=== PATIENT | female | born 1995 | race Hispanic/Latino ===

== ENCOUNTER 2022-02-08 14:56 | Emergency (ER) | payer OTHER ==
[~2022-02-08] VITALS: Ht 157.5 cm; Wt 63.5 kg
[2022-02-08 15:49] LABS: BASOPHILS % (AUTO) 0.4 % (0.0-5.0); HEMATOCRIT 23.7 % (36-48); LYMPHOCYTES % (AUTO) 18.6 % (21.0-51.0); MEAN CORPUSCULAR HEMOGLOBIN 30.6 pg (27.0-33.0); MEAN CORPUSCULAR HGB CONC 33.3 g/dL (32.0-36.0); MEAN CORPUSCULAR VOLUME 91.9 fL (79-99); MONOCYTES % (AUTO) 6.8 % (3.0-13.0); NEUTROPHILS % (AUTO) 73.8 % (40.0-77.0); PLATELET COUNT (AUTO) 213 K/uL (130-400); RED BLOOD CELL COUNT(AUTO) 2.58 MIL/uL (4.00-5.50); WHITE BLOOD COUNT (AUTO) 4.6 K/uL (4.8-10.8)
[2022-02-08 15:58] LABS: CREATININE 0.7 mg/dL (0.5-1.5)
[2022-02-08 16:00] LABS: APPEARANCE,URINE SL CLOUDY (CLEAR); BILIRUBIN,URINE NEGATIVE (NEGATIVE); COLOR,URINE YELLOW (YELLOW); GLUCOSE, URINE (UA) NEGATIVE (NEGATIVE); KETONES,URINE >=80 mg/dL (NEGATIVE); LEUKOCYTE ESTERASE ,URINE NEGATIVE (NEGATIVE); NITRATE,URINE NEGATIVE (NEGATIVE); OCCULT BLOOD,URINE LARGE (NEGATIVE); PROTEIN,URINE NEGATIVE (NEGATIVE)
[2022-02-08] MEDS ORDERED: 0.9%NACL 1000ML 1,000 ML IV SCH (16:00)
[2022-02-08 16:02] LABS: ALBUMIN 3.6 g/dL (3.5-5.0); TOTAL PROTEIN, SERUM 6.6 g/dL (6.0-8.3)
[2022-02-08 16:05] LABS: BACTERIA,URINE Rare /HPF (None Seen)
[2022-02-08 16:06] LABS: SQUAMOUS EPITHELIAL CELL,UR 0-2 /HPF (0-2); WBC,URINE 0-1 /HPF (0-1)
[2022-02-08] MEDS ORDERED: PREN-61 PO (16:25)
[2022-02-08 16:51] VITALS: BP 120/66
== END 2022-02-08 16:58 | disposition home or self-care (01) ==
LOC: EDH 14:56
DX: D64.9 Anemia, unspecified (principal); R53.1 Weakness; F32.A Depression, unspecified
CPT/HCPCS: 36415; 76856; 80053; 81001; 81025; 85025; 86850; 86900; 86901

== ENCOUNTER 2022-02-12 17:14 | Inpatient (IN) | payer OTHER ==
[~2022-02-12] VITALS: Ht 208.3 cm; Wt 60.8 kg
[~2022-02-12 17:14] MED LIST: PREN-61 PO
[2022-02-12 17:43] LABS: BASOPHILS % (AUTO) 0.6 % (0.0-5.0); EOSINOPHILS % (AUTO) 0.6 % (0.0-8.0); LYMPHOCYTES % (AUTO) 30.9 % (21.0-51.0); MEAN CORPUSCULAR HEMOGLOBIN 29.9 pg (27.0-33.0); MEAN CORPUSCULAR HGB CONC 31.8 g/dL (32.0-36.0); MEAN CORPUSCULAR VOLUME 94.1 fL (79-99); MONOCYTES % (AUTO) 10.7 % (3.0-13.0); PLATELET COUNT (AUTO) 268 K/uL (130-400); RED BLOOD CELL COUNT(AUTO) 2.04 MIL/uL (4.00-5.50); RED CELL DISTRIBUTION WIDTH 13.7 % (11.0-15.5); WHITE BLOOD COUNT (AUTO) 5.3 K/uL (4.8-10.8)
[2022-02-12 17:51] LABS: HEMATOCRIT 19.2 % (36-48)
[2022-02-12 17:55] LABS: POTASSIUM 3.5 mmol/L (3.5-5.1)
[2022-02-12 17:58] LABS: INR 0.93 (0.85-1.15); PROTHROMBIN TIME 10.1 SEC (9.6-11.6)
[2022-02-12 18:00] LABS: ALBUMIN 3.4 g/dL (3.5-5.0); TOTAL PROTEIN, SERUM 6.2 g/dL (6.0-8.3)
[2022-02-12] MEDS ORDERED: HYDROCODONE/ACETAMINOPHEN 5/325 MG TAB PO PRN ×2 (20:00)
[2022-02-12] MEDS ORDERED: ACETAMINOPHEN 325 MG TAB PO PRN (20:00)
[2022-02-12] MEDS ORDERED: ONDANSETRON 4MG INJ IV PRN (20:00)
[2022-02-12] MEDS: FAMOTIDINE 20MG TAB PO SCH (21:52)
[2022-02-13 04:40] LABS: % IRON SATURATION 8.7 % (22-44)
[2022-02-13] MEDS ORDERED: BENZ1LOZ81 MM (08:51)
[2022-02-13] MEDS ORDERED: LOPE2CAP14 PO ×2 (08:51)
[2022-02-13] MEDS ORDERED: FERR-72 PO (08:51)
[2022-02-13] MEDS ORDERED: TRAZ-187 PO (08:51)
[2022-02-13] MEDS ORDERED: MOM30 PO (08:51)
[2022-02-13] MEDS ORDERED: BACI28.434 TP (08:51)
[2022-02-13] MEDS ORDERED: ESCI-8 PO (08:51)
[2022-02-13] MEDS ORDERED: FOLI1 PO (08:51)
[2022-02-13] MEDS ORDERED: METH-811 PO (08:51)
[2022-02-13] MEDS ORDERED: THIA100T75 PO (08:51)
[2022-02-13] MEDS ORDERED: MULT-1367 PO (08:51)
[2022-02-13] MEDS ORDERED: MAAL30 PO (08:51)
[2022-02-13] MEDS ORDERED: ONDA4TAB10 PO (08:51)
[2022-02-13] MEDS ORDERED: PHARMACY COMMUNICATION MISC SCH (09:00)
[2022-02-13] MEDS ORDERED: MEDROXYPROGESTERONE ACET 5 MG TAB PO SCH (09:30)
[2022-02-13] MEDS: FAMOTIDINE 20MG TAB PO SCH ×2 (09:32→20:59)
[2022-02-13 15:39] VITALS: BP 115/78
== END 2022-02-13 21:32 | disposition home or self-care (01) | DRG 760 ==
LOC: EDH 17:14 → EDHIP 17:15
PROVIDERS: ADMIT Hospitalist; ATTEND Hospitalist
PROC: 30233N1 Transfusion of Nonautologous Red Blood Cells into Peripheral Vein, Percutaneous Approach (ICD-10-PCS; principal; 2022-02-12)
DX: N93.9 Abnormal uterine and vaginal bleeding, unspecified (principal); D62 Acute posthemorrhagic anemia; Z91.51 Personal history of suicidal behavior
CPT/HCPCS: 36415; 76856; 80053; 81025; 82728; 83540; 83550; 84443; 85014; 85018; 85025; 85610; 86850; 86900; 86901; 86923; G0378; P9016